=== PATIENT | female | born 1970 | race Caucasian/White ===

== ENCOUNTER 2018-09-07 01:51 | Inpatient (IN) | payer MEDICAID ==
[~2018-09-07] VITALS: Ht 167.6 cm; Wt 62.6 kg
[2018-09-07] VITALS (10 sets, daily range): BP systolic 93–128; BP diastolic 47–80; BMI 22.3
[2018-09-07 02:25] LABS: APPEARANCE HAZY (CLEAR); BILIRUBIN NEGATIVE (NEGATIVE); COLOR YELLOW (YELLOW); GLUCOSE NEGATIVE (NEGATIVE); HCG URINE NEGATIVE (NEGATIVE); KETONE SMALL mg/dL (NEGATIVE); NITRITE NEGATIVE (NEGATIVE); PROTEIN TRACE mg/dL (NEGATIVE); SPECIFIC GRAVITY 1.025 (1.005-1.020); UROBILINOGEN NORMAL (NORMAL)
[2018-09-07 02:32] LABS: BACTERIA MODERATE /hpf (NONE SEEN); EPITHELIAL CELLS 0-5 /hpf (0-5); HYALINE CAST OCC /lpf (NONE SEEN); MUCUS >1+ /lpf (NONE SEEN); RED CELLS - URINE 0-5 /hpf (0-5); WHITE CELLS - URINE 0-5 /hpf (0-5)
[2018-09-07 02:56] LABS: ALBUMIN 4.1 g/dL (3.4-5.0); ALKALINE PHOSPHATASE 29 U/L (46-116); ALT (SGPT) 28 U/L (10-68); BILIRUBIN - TOTAL 0.64 mg/dL (0.2-1.3); CALC OSMOLALITY 283 mosm/kg (275-300); CALCIUM 8.5 mg/dL (8.5-10.1); CARBON DIOXIDE 27.2 mmol/L (21.0-32.0); CHLORIDE - SERUM 104 mmol/L (98-107); CREATININE - SERUM 0.7 mg/dL (0.6-1.3); GLUCOSE 116 mg/dL (74-106); PROTEIN - SERUM 7.6 g/dL (6.4-8.2); SODIUM 141 mmol/L (136-145); UREA NITROGEN 18 mg/dL (7-18); eGFR NON AFRICAN AMERICAN > 90 mL/min (90-120)
[2018-09-07 03:00] LABS: AMYLASE - SERUM 55 U/L (25-115); LIPASE 143 U/L (73-393); TROPONIN-I < 0.017 ng/mL (0.000-0.060)
[2018-09-07 03:48] LABS: BASOPHILS 0.1 % (0-2); EOSINOPHILS 0.2 % (0-7); HEMATOCRIT 38.4 % (36.0-48.0); HEMOGLOBIN 13.6 g/dL (12-16); IMMATURE GRANULOCYTES 0.2 % (0-5); LYMPHOCYTES 3.5 % (15-50); MCH 34.1 pg (26.0-34.0); MCHC 35.4 g/dL (31.0-37.0); MCV 96.2 fL (80.0-100.0); MEAN PLATELET VOLUME 12.1 fL (7.4-10.4); MONOCYTES 6.6 % (2-11); NEUTROPHILS 89.4 % (40-80); PLATELET COUNT 147 10x3/uL (130-400); RBC 3.99 10x6/uL (4.00-5.40); RDW 11.5 % (11.5-14.5); WBC 10.6 10x3/uL (4.8-10.8)
--- NOTE | 2018-09-07 04:45 | NUR ---
PT TO CT VIA WHEELCHAIR.
--- NOTE | 2018-09-07 04:49 | NUR ---
IV RELOCATED DUE TO INFILTRATION WHEN ATTEMPTED TO FLUSH IN CT.
--- NOTE | 2018-09-07 05:07 | NUR ---
BACK FROM CT- UP TO BATHROOM- THEN RECONNECTED TO MONITORS.
--- NOTE | 2018-09-07 07:14 | NUR ---
BEDSIDE PT REPORT HANDED OFF VIA SBAR TO SUZAN TEJEDA.
--- NOTE | 2018-09-07 07:16 | NUR ---
BEDSIDE REPORT RECIEVED FROM SUZAN KINGSTON. PT REQUESTING PRN PAIN MEDICATION AND ASSISTED TO THE RESTROOM. DENIES ANY OTHER NEEDS AT THIS TIME.
--- NOTE | 2018-09-07 10:16 | NUR ---
RECEIVED REPORT FROM NIKHIL IN ER, ASSUME PT CARE
[2018-09-08 00:38] VITALS: BP 98/49
[2018-09-08 05:03] VITALS: BP 82/36
[2018-09-08 06:08] LABS: BASOPHILS 0.3 % (0-2); EOSINOPHILS 0.3 % (0-7); IMMATURE GRANULOCYTES 0.3 % (0-5); LYMPHOCYTES 23.5 % (15-50); MCH 32.8 pg (26.0-34.0); MCHC 33.8 g/dL (31.0-37.0); MCV 97.3 fL (80.0-100.0); MEAN PLATELET VOLUME 11.5 fL (7.4-10.4); MONOCYTES 14.2 % (2-11); NEUTROPHILS 61.4 % (40-80); PLATELET COUNT 119 10x3/uL (130-400); RBC 3.29 10x6/uL (4.00-5.40); RDW 11.4 % (11.5-14.5)
[2018-09-08 06:26] LABS: ALKALINE PHOSPHATASE 19 U/L (46-116); BILIRUBIN - TOTAL 0.46 mg/dL (0.2-1.3); CALCIUM 7.4 mg/dL (8.5-10.1); CARBON DIOXIDE 21.3 mmol/L (21.0-32.0); CHLORIDE - SERUM 106 mmol/L (98-107); CREATININE - SERUM 0.7 mg/dL (0.6-1.3); FERRITIN 149 ng/mL (3-244); GLUCOSE 77 mg/dL (74-106); LIPASE 114 U/L (73-393); MAGNESIUM - SERUM 1.7 mg/dL (1.8-2.4); PHOSPHOROUS 2.4 mg/dL (2.5-4.9); SODIUM 138 mmol/L (136-145); eGFR NON AFRICAN AMERICAN > 90 mL/min (90-120)
[2018-09-08 06:37] LABS: HEMOGLOBIN 10.8 g/dL (12-16); WBC 3.2 10x3/uL (4.8-10.8)
--- NOTE | 2018-09-08 06:48 | NUR ---
MEDS GIVEN PER MAR. ALL NEEDS MET.
[2018-09-08 06:53] LABS: ALBUMIN 2.6 g/dL (3.4-5.0); ALT (SGPT) 15 U/L (10-68); AMYLASE - SERUM 37 U/L (25-115); CALC OSMOLALITY 273 mosm/kg (275-300); POTASSIUM - SERUM 3.3 mmol/L (3.5-5.1); PROTEIN - SERUM 5.4 g/dL (6.4-8.2); UREA NITROGEN 9 mg/dL (7-18)
--- NOTE | 2018-09-08 07:45 | NUR ---
ASSESSMENT PER FLOW SHEET. PT IS WITHOUT DISTRESS.MONITOR FOR NEEDS.CALL LIGHT IN REACH
[2018-09-08 09:16] VITALS: BP 101/46
[2018-09-08] MEDS ORDERED: LEVAQUIN750 MG PO (11:27)
[2018-09-08] MEDS ORDERED: FLAGYL500 MG PO (11:28)
[2018-09-08] MEDS ORDERED: ZOFRAN ODT4 MG/UDTAB PO (11:28)
[2018-09-08 13:26] VITALS: Ht 167.6 cm; Wt 62.6 kg
--- NOTE | 2018-09-08 13:34 | NUR ---
IV DCD WITH CATH TIP INTACT. WILL DC HOME
[2018-09-08 13:37] VITALS: BP 106/50
--- NOTE | 2018-09-08 15:13 | NUR ---
DISCHARGE INSTRUCTIONS,TATES UNDERSTANDING. WAITING ON RIDE HOME.
--- NOTE | 2018-09-08 15:29 | NUR ---
RIDE IS HERE. PT LEFT UNIT VIA WHEELCHAR FOR TRANSPORT HOME
[2018-09-09 20:06] LABS: OVA + PARASITE EXAM Final report (())
== END 2018-09-08 15:30 | disposition home or self-care (01) | DRG 392 ==
LOC: D.ER 01:51 → D.EDHOLD 05:56 → D.MS 05:56
PROVIDERS: Family Medicine; ADMIT Family Medicine Adult Medicine; ATTEND Family Medicine Adult Medicine
DX: K52.9 Noninfective gastroenteritis and colitis, unspecified (principal); R11.2 Nausea with vomiting, unspecified; E86.0 Dehydration